=== PATIENT | female | born 1960 | race Two or more races ===

== ENCOUNTER 2019-08-05 13:41 | Emergency (ER) | payer BC ==
[~2019-08-05] VITALS: Ht 162.6 cm; Wt 79.8 kg
[2019-08-05 14:06] VITALS: BP 134/83
--- NOTE | 2019-08-05 14:07 | NUR ---
ED Nurse Note: pt ambulated into ED form home due to left hip pain radiating to left thigh. denies any recent trauma. hx of tumor the leg. NAD noted. Breathing normal/even/unlabored.
[2019-08-05] MEDS ORDERED: HYDROcodone/Acetamin 5/325 tab ORAL ONE (14:15)
[2019-08-05] MEDS ORDERED: Ketorolac 30mg Inj IM ONE (14:15)
--- NOTE | 2019-08-05 15:30 | Diagnostic Imaging Report ---
EXAM: XR Left Femur, 2 Views CLINICAL HISTORY: PAIN TECHNIQUE: Frontal and lateral views of the left femur. COMPARISON: None FINDINGS: Bones joints: No displaced fracture or dislocation identified. Osteopenia. No left knee joint effusion. Soft tissues: Probable injection granulomas in the left gluteal soft tissues. Presumed phleboliths in the pelvis. IMPRESSION: No displaced fracture or dislocation identified.
--- NOTE | 2019-08-05 15:31 | Diagnostic Imaging Report ---
EXAM: XR Pelvis, 1 or 2 Views CLINICAL HISTORY: PAIN TECHNIQUE: Frontal view of the pelvis. COMPARISON: None FINDINGS: Bones joints: No displaced fracture or dislocation identified. Osteopenia. Soft tissues: Presumed phleboliths in the pelvis. Probable injection granulomas in the left gluteal soft tissues. IMPRESSION: No displaced fracture or dislocation identified.
--- NOTE | 2019-08-05 15:49 | Emergency Room Report ---
History of Present Illness General Chief Complaint: Pain Source: Patient Present Illness HPI 59-year-old female with history of high blood pressure currently controlled with medication here complaining of pain in the left hip that radiates to the left lower leg x1 month. 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 Patient has not however followed up with primary care crime victim specialist as well as oncologist ever since. Denies any recent unintentional weight loss, fever and chills, night sweats, abdominal pain, headache, dizziness, chest pain or shortness of breath. Patient reports that she went to [place] and try different medication which have not been helping her however does not recall the name of this medication. Denies any recent fall or injury. Rating the pain 10 out of 10 worsening when sitting and standing as well as walking. Denies tingling and numbness. No calf tenderness noted no bony tenderness noted straight leg test negative. Allergies: Coded Allergies: No Known Allergies (Unverified , 08/05/19) Patient History Past Medical History: see triage record Past Surgical History: unable to obtain Pertinent Family History: none Now: No Immunizations: UTD Reviewed Nursing Documentation: PMH: Agreed; PSxH: Agreed Nursing Documentation-PMH Hx Hypertension: Yes Review of Systems All Other Systems: negative except mentioned in HPI Physical Exam Vital Signs Date Time Temp Pulse Resp B/P (MAP) Pulse Ox O2 Delivery O2 Flow Rate FiO2 08/05/19 13:47 97.5 83 19 134/83 (100) 96 Room Air Sp02 EP Interpretation: reviewed, normal General Appearance: no apparent distress, alert, GCS 15, non-toxic Head: normocephalic, atraumatic Eyes: bilateral eye normal inspection, bilateral eye PERRL ENT: hearing grossly normal, normal pharynx, no angioedema, normal voice Neck: full range of motion, supple/symm/no masses Respiratory: chest non-tender, lungs clear, normal breath sounds, no rhonchi, speaking full sentences Cardiovascular #1: regular rate, rhythm, no edema, no murmur, normal capillary refill Cardiovascular #2: 2+ dorsalis pedis (R), 2+ dorsalis pedis (L) Gastrointestinal: normal inspection, normal bowel sounds, non tender, soft, no mass Genitourinary: normal inspection, no CVA tenderness Musculoskeletal: back normal, gait/station normal, non-tender, no calf tenderness, pelvis stable Neurologic: alert, oriented x3, responsive, motor strength/tone normal, sensory intact, speech normal Skin: no rash Lymphatic: no adenopathy Medical Decision Making PA Attestation All my diagnosis and treatment plans were reviewed ad discussed with my supervising physician Dr. Mayorga Diagnostic Impression: Primary Impression: Osteopenia Additional Impression: Phlebolith ER Course 59-year-old female with history of high blood pressure currently controlled with medication here complaining of pain in the left hip that radiates to the left lower leg x1 month. 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 Patient has not however followed up with primary care crime victim specialist as well as oncologist ever since. Denies any recent unintentional weight loss, fever and chills, night sweats, abdominal pain, headache, dizziness, chest pain or shortness of breath. Patient reports that she went to [place] and try different medication which have not been helping her however does not recall the name of this medication. Denies any recent fall or injury. Rating the pain 10 out of 10 worsening when sitting and standing as well as walking. Denies tingling and numbness. No calf tenderness noted no bony tenderness noted straight leg test negative. Ddx considered but are not limited to: Hip fracture versus metastatic cancer versus sprain versus contusion versus strain Vital signs: are WNL, pt. is afebrile H&PE are most consistent with: Osteopenia, granulomas, phlebolith ORDERS: Pelvic and hip x-ray, left femur x-ray, ibuprofen, Robaxin ED INTERVENTIONS: Toradol DISCHARGE: At this time pt. is stable for d/c to home. Will provide printed patient care instructions, and any necessary prescriptions. Care plan and follow up instructions have been discussed with the patient prior to discharge. I advised the patient to follow-up with her primary care physician for further assessment and also do a DEXA scan as she is on the verge of getting osteoporosis also have this for lipids and granulomas checked at this time I cannot give a clear answer whether those granulomas are benign versus malignant as I am not a specialist and patient understands that. Other X-Ray Diagnostic Results Other X-Ray Diagnostic Results #1: X-Ray ordered: Pelvic and hip # of Views/Limited Vs Complete: 3 View Indication: Pain EP Interpretation: Yes PA Xray: Interpretation reviewed, by supervising MD, and agrees with findings. Interpretation: no dislocation, no soft tissue swelling, no fractures Impression: No acute disease Electronically Signed by: Herlinda LAN Scribe Text FINDINGS: Bones/joints: No displaced fracture or dislocation identified. Osteopenia. Soft tissues: Presumed phleboliths in the pelvis. Probable injection granulomas in the left gluteal soft tissues. IMPRESSION: No displaced fracture or dislocation identified. Other X-Ray Diagnostic Results #2: X-Ray ordered: Left femur # of Views/Limited Vs Complete: 3 View Indication: Pain EP Interpretation: Yes PA Xray: Interpretation reviewed, by supervising MD, and agrees with findings. Interpretation: no dislocation, no soft tissue swelling, no fractures Impression: No acute disease Electronically Signed by: Herlinda LAN Scribe Text FINDINGS: Bones/joints: No displaced fracture or dislocation identified. Osteopenia. No left knee joint effusion. Soft tissues: Probable injection granulomas in the left gluteal soft tissues. Presumed phleboliths in the pelvis. IMPRESSION: No displaced fracture or dislocation identified. Last Vital Signs Date Time Temp Pulse Resp B/P (MAP) Pulse Ox O2 Delivery O2 Flow Rate FiO2 08/05/19 15:10 97.5 08/05/19 14:06 83 19 134/83 96 Room Air Status: worsened Disposition: HOME, SELF-CARE Condition: Stable Scripts Methocarbamol* (ROBAXIN-750*) 750 Mg Tablet 750 MG PO TID, #21 TAB 0 Refills Prov: Herlinda Barry 08/05/19 Ibuprofen (Ibu) 800 Mg Tablet 800 MG PO TID, #30 TAB Prov: Herlinda Barry 08/05/19 Referrals: [facility],REFERR[facility] (PCP) Patient Instructions: Hip Pain, Osteoporosis, [id number] Additional Instructions: Follow-up with your primary care provider for referral to crime victim specialist and further assessment physical therapy highly advised also perform DEXA scan due to your osteopenia. Herlinda Barry Aug 05, 2019 15:49
[2019-08-05] MEDS ORDERED: ROBAXIN-750750 MG PO (15:51)
[2019-08-05] MEDS ORDERED: IBU800 MG PO (15:51)
[2019-08-05 16:18] VITALS: BP 132/72
--- NOTE | 2019-08-05 16:18 | NUR ---
ER DISCHARGE NOTE: Patient is cleared to be discharged per ERMD, pt is aox4, on room air, with stable vital signs. pt was given dc and prescription instructions, pt was able to verbalize understanding, pt id band removed without complications. pt is able to ambulate with steady gait. pt took all belongings.
== END 2019-08-05 16:19 | disposition home or self-care (01) ==
LOC: EMR 14:56
DX: M85.88 Other specified disorders of bone density and structure, other site (principal); M85.862 Other specified disorders of bone density and structure, left lower leg; I10 Essential (primary) hypertension; I87.8 Other specified disorders of veins
CPT/HCPCS: 72170; 73552; 96372; 99284; J1885